=== PATIENT | female | born 2000 | race Caucasian/White ===

== ENCOUNTER 2022-01-04 21:33 | Emergency (ER) | payer BC ==
[2022-01-04] MEDS: LORazepam 2 MG/ML SDV IVPUSH ONE (22:00)
[2022-01-04] MEDS: Sodium Chloride 0.9% 10 ML Syringe FLUSH PRN (22:02)
[2022-01-04] MEDS: Lactated Ringers 1,000 ML IV SCH (22:02)
== END 2022-01-04 23:20 | disposition home or self-care (01) ==
LOC: JP.ED 21:33
DX: U07.1 COVID-19 (principal); T40.725A Adverse effect of synthetic cannabinoids, initial encounter; E86.0 Dehydration; Z86.16 Personal history of COVID-19
CPT/HCPCS: 36415; 80053; 82728; 83605; 83615; 85025; 86140; 96374; 99283; 99285-25; J2060; J7120